=== PATIENT | male | born 1980 | race Caucasian/White ===

== ENCOUNTER 2018-04-10 09:48 | Inpatient (IN) | payer OTHER ==
[2018-04-10] VITALS (12 sets, daily range): BP systolic 113–156; BP diastolic 66–86; PULSE 100–124; RESP 12–22; TEMP 97.6–98.7; O2SAT 92–98
[2018-04-10] MEDS ORDERED: BACL10TA PO (10:35)
[2018-04-10] MEDS ORDERED: EMPA1TAB3 PO (10:35)
[2018-04-10] MEDS ORDERED: ESCI20TA PO (10:35)
[2018-04-10] MEDS ORDERED: METF500T PO (10:35)
[2018-04-10] MEDS ORDERED: MELO15TA20 PO (10:35)
[2018-04-10] MEDS ORDERED: INSU0.2I SQ (10:35)
[2018-04-10] MEDS ORDERED: GABA300C5 PO (10:35)
[2018-04-10] MEDS ORDERED: ROSU1TAB10 PO (10:35)
[2018-04-10] MEDS ORDERED: MULTTAB67 PO (10:35)
[2018-04-10] MEDS ORDERED: MORPHINE SULFATE 4 MG/ML INJ IV PUSH ONE (10:45)
[2018-04-10] MEDS ORDERED: SODIUM CHLOR 0.9% 1000 ML INJ 1,000 ML IV ONE ×3 (10:45→11:45)
--- NOTE | 2018-04-10 10:47 | PD ---
HPI Chief Complaint: Abdominal Pain Time Seen by Provider: 10:34 Travel History International Travel<30 days: No Contact w/Intl Traveler<30days: No Traveled to known affect area: No History of Present Illness HPI 37yo M with PMH of IDDM presents to the ED with c/o abdominal pain, nausea, vomiting for a last few days. Pt has not had bowel movement since 5 days ago. Pain is generalized and cramping. Pt also with midsternal chest pain for a few days that feels like a small child is sitting on his chest. Associated with some sob. Feels chills but no documented fever. Denies any focal weakness or numbness. Pt has not taken his insulin for a few days. PFSH Past Medical History Arthritis: Yes (osteoarthritis ) Diabetes: Yes (METFORMIN, INSULIN) Patient Takes Glucophage: Yes (Metformin 04/07/18 0800) Diminished Hearing: No Medical other: Yes (neuropathy) Tetanus Vaccination: > 5 Years Influenza Vaccination: No Past Surgical History Surgical History: No Previous Surgery Social History Alcohol Use: No Tobacco Use: No Substance Use: No Allergies-Medications (Allergen,Severity, Reaction): Coded Allergies: No Known Drug Allergies (Verified Allergy, Unknown, 04/10/18) Reported Meds & Prescriptions Reported Meds & Active Scripts Active Reported Metformin (Metformin HCl) 500 Mg Tab 500 Mg PO BIDPC Escitalopram (Escitalopram Oxalate) 20 Mg Tab 20 Mg PO DAILY Soliqua 100/33 100-33 Unt-Mcg/ml (Insulin Glargine-Lixisenatide) 100 Unit-33 Mcg /Ml (3 Ml) Inj 30 Unit SQ DAILY Multiple Vitamin 1 Tab 1 Tab PO DAILY Meloxicam 15 Mg Tab 15 Mg PO DAILY Baclofen 10 Mg Tab 10 Mg PO DAILY Gabapentin 300 Mg Cap 300 Mg PO BID Jardiance (Empagliflozin) 25 Mg Tab 25 Mg PO DAILY Rosuvastatin (Rosuvastatin Calcium) 40 Mg Tab 40 Mg PO DAILY Review of Systems Except as stated in HPI: all other systems reviewed are Neg Physical Exam Narrative GENERAL: 37yo M in moderated distress. SKIN: Focused skin assessment warm/dry. HEAD: Atraumatic. Normocephalic. EYES: Pupils equal and round. No scleral icterus. No injection or drainage. ENT: No nasal bleeding or discharge. Mucous membranes pink and moist. NECK: Trachea midline. No JVD. CARDIOVASCULAR: Mildly tachycardic. No murmur appreciated. RESPIRATORY: No accessory muscle use. Clear to auscultation. Breath sounds equal bilaterally. GASTROINTESTINAL: Abdomen soft, +Epigastric ttp. No rebound tenderness or guarding. MUSCULOSKELETAL: No obvious deformities. No clubbing. No cyanosis. No edema. NEUROLOGICAL: Awake and alert. No obvious cranial nerve deficits. Motor grossly within normal limits in all extremities. Sensation intact. Normal speech. PSYCHIATRIC: Appropriate mood and affect; insight and judgment normal. Data Data Last Documented VS Vital Signs Date Time Temp Pulse Resp B/P (MAP) Pulse Ox O2 Delivery O2 Flow Rate FiO2 04/10/18 13:00 16 04/10/18 10:11 97.6 124 143/86 (105) 96 Orders Orders Complete Blood Count With Diff (04/10/18 10:43) Comprehensive Metabolic Panel (04/10/18 10:43) Lipase (04/10/18 10:43) Prothrombin Time / Inr (Pt) (04/10/18 10:43) Act Partial Throm Time (Ptt) (04/10/18 10:43) Urinalysis - C+S If Indicated (04/10/18 10:43) Ct Abd/Pel W Iv Contrast(Rout) (04/10/18 10:43) Electrocardiogram (04/10/18 10:43) Troponin I (04/10/18 10:43) Chest, Single Ap (04/10/18 ) Sodium Chlor 0.9% 1000 Ml Inj (Ns 1000 M (04/10/18 10:45) Morphine Inj (Morphine Inj) (04/10/18 10:45) Blood Culture (04/10/18 10:46) Lactic Acid Sepsis Protocol (04/10/18 10:46) Blood Glucose (04/10/18 10:47) Blood Gas Venous (Vbg) (04/10/18 10:47) Sodium Chlor 0.9% 1000 Ml Inj (Ns 1000 M (04/10/18 11:00) Sodium Chlor 0.9% 1000 Ml Inj (Ns 1000 M (04/10/18 11:45) Beta Hydroxybutyrate (Acetone) (04/10/18 11:25) Insulin Regular (Iv Infusion) (Novolin R (04/10/18 14:00) Potassium Chlor 20 Meq Premix (Kcl 20 Me (04/10/18 13:30) Potassium Chlor 20 Meq Premix (Kcl 20 Me (04/10/18 13:30) Potassium Chlor 20 Meq Premix (Kcl 20 Me (04/10/18 13:30) Potassium Chlor 20 Meq Premix (Kcl 20 Me (04/10/18 13:30) Sodium Chlor 0.9% 1000 Ml Inj (Ns 1000 M (04/10/18 13:23) Dext 5%-Nacl 0.9% 1000 Ml Inj (D5w-Ns 10 (04/10/18 13:23) Iohexol 350 Inj (Omnipaque 350 Inj) (04/10/18 13:35) Labs Laboratory Tests Test 04/10/18 11:25 04/10/18 12:30 04/10/18 12:55 White Blood Count 11.0 TH/MM3 Red Blood Count 5.61 MIL/MM3 Hemoglobin 17.2 GM/DL Hematocrit 49.1 % Mean Corpuscular Volume 87.4 FL Mean Corpuscular Hemoglobin 30.6 PG Mean Corpuscular Hemoglobin Concent 35.0 % Red Cell Distribution Width 14.8 % Platelet Count 279 TH/MM3 Mean Platelet Volume 10.0 FL Neutrophils (%) (Auto) 80.6 % Lymphocytes (%) (Auto) 11.9 % Monocytes (%) (Auto) 6.1 % Eosinophils (%) (Auto) 0.1 % Basophils (%) (Auto) 1.3 % Neutrophils # (Auto) 8.9 TH/MM3 Lymphocytes # (Auto) 1.3 TH/MM3 Monocytes # (Auto) 0.7 TH/MM3 Eosinophils # (Auto) 0.0 TH/MM3 Basophils # (Auto) 0.1 TH/MM3 CBC Comment DIFF FINAL Differential Comment Blood Gas Puncture Site IV Blood Gas Patient Temperature 98.6 Venous Blood pH 7.17 Venous Blood Partial Pressure CO2 32 mmHg Venous Blood Partial Pressure O2 36 mmHg Venous Blood HCO3 11 mmol/L Venous Blood Oxygen Saturation 67 % Venous Blood Oxygen Content 16.2 Vol % Venous Blood Base Excess -16.0 mmol/L Oxygen Delivery Device ROOM AIR Blood Gas Inspired Oxygen 21 % Blood Urea Nitrogen 29 MG/DL Creatinine 1.30 MG/DL Random Glucose 266 MG/DL Total Protein 8.9 GM/DL Albumin 4.0 GM/DL Calcium Level 8.6 MG/DL Alkaline Phosphatase 73 U/L Aspartate Amino Transf (AST/SGOT) 7 U/L Alanine Aminotransferase (ALT/SGPT) 33 U/L Total Bilirubin 0.4 MG/DL Sodium Level 137 MEQ/L Potassium Level 4.3 MEQ/L Chloride Level 109 MEQ/L Carbon Dioxide Level 11.8 MEQ/L Anion Gap 16 MEQ/L Estimat Glomerular Filtration Rate 62 ML/MIN Lactic Acid Level 1.1 mmol/L Troponin I LESS THAN 0.02 NG/ML Lipase 513 U/L B-Hydroxybutyrate 7.04 MMOL/L Urine Collection Type VOIDED Urine Color STRAW Urine Turbidity CLEAR Urine pH 6.0 Urine Specific [place] 1.025 Urine Protein 100 mg/dL Urine Glucose (UA) 1000 OR GREATER mg/dL Urine Ketones 80 OR GREATER mg/dL Urine Occult Blood MOD Urine Nitrite NEG Urine Bilirubin NEG Urine Urobilinogen 0.2 MG/DL Urine Leukocyte Esterase NEG Urine Squamous Epithelial Cells 0-2 /hpf Microscopic Urinalysis Comment CULT NOT INDICATED MDM Medical Decision Making Medical Screen Exam Complete: Yes Emergency Medical Condition: Yes Interpretation(s) EKG: Sinus tachycardia at 118bpm. Normal axis. No ST segment elevation or depression. Differential Diagnosis DKA vs. obstruction vs. colitis vs. ACS vs. pneumonia Narrative Course 37yo IDDM presents to the ED with c/o abdominal pain, vomiting, as well as chest pain for 5 days. Pt appears dehydrated and is tachycardic. Pt has not been taking his insulin for a few days. Impression is DKA. Labs reviewed, VBG showed metabolic acidosis with pH of 7.17 and HCO3 of 11. Labs reviewed, no leukocytosis. Hemoglobin elevated likely from dehydration. K normal at 4.3. Anion gap increased at 16. BUN elevated at 29, consistent with dehydration. Glucose elevated at 266. Lactic acid 1.1. Lipase elevated at 513. Troponin negative. CXR negative. Pt started on DKA protocol with K replacement, insulin drip and D5 water IVF since glucose is only 266. Pt reevaluated at bedside and feels a little better. No longer has chest pain. CT a/p negative for acute process. Discussed with Dr. Perez and accepted to his service. Critical Care Narrative Aggregate critical care time was 50 minutes. Time to perform other separately billable procedures was not included in the critical care time. My time did not include minutes spent treating any other patients simultaneously or on activities that did not directly contribute to the patient's treatment. The services I provided to this patient were to treat and/or prevent clinically significant deterioration that could result in: cardiovascular collapse or . I provided critical care services requiring my management, as noted below: Chart data review, documentation time, medication orders and management, vital sign assessments/reviewing monitor data, ordering and reviewing lab tests, ordering and interpreting/reviewing x-rays and diagnostic studies, care of the patient and discussion of the patient with the admitting physicians. Diagnosis Primary Impression: DKA (diabetic ketoacidoses) Qualified Codes: E10.10 - Type 1 diabetes mellitus with ketoacidosis without coma Admitting Information Admitting Physician Requests: it Norma Su DO April 10, 2018 10:47
--- NOTE | 2018-04-10 11:08 | RADRPT ---
EXAM DATE/TIME: 04/10/2018 10:55 [facility] COMPARISON: No previous studies available for comparison. INDICATIONS : Chest discomfort; vomiting for 2 days. MEDICAL HISTORY : None. SURGICAL HISTORY : None. ENCOUNTER: Initial ACUITY: 2 days PAIN SCORE: 2/10 LOCATION: Bilateral chest FINDINGS: A single view of the chest demonstrates the lungs to be symmetrically aerated without evidence of mas s, infiltrate or effusion. The cardiomediastinal contours are unremarkable. Osseous structures are intact. CONCLUSION: Normal examination. Julia Nelson MD on April 10, 2018 at 11:04 Board Certified Radiologist. This report was verified electronically.
[2018-04-10 11:52] LABS: AUTOMATED NEUTROPHIL # 8.9 TH/MM3 (1.8-7.7); BASOPHIL # 0.1 TH/MM3 (0-0.2); BASOPHIL % 1.3 % (0.0-2.0); EOSINOPHIL % 0.1 % (0.0-4.0); HEMATOCRIT 49.1 % (39.0-51.0); HEMOGLOBIN 17.2 GM/DL (13.0-17.0); LYMPH % 11.9 % (9.0-44.0); LYMPHOCYTE # 1.3 TH/MM3 (1.0-4.8); MEAN CELL VOLUME 87.4 FL (80.0-100.0); MEAN CORPUSCULAR HEMOGLOBIN 30.6 PG (27.0-34.0); MONO % 6.1 % (0.0-8.0); MONOCYTE # 0.7 TH/MM3 (0-0.9); NEUT % 80.6 % (16.0-70.0); PLATELET COUNT 279 TH/MM3 (150-450); RED BLOOD COUNT 5.61 MIL/MM3 (4.50-5.90); RED CELL DISTRIBUTION WIDTH 14.8 % (11.6-17.2)
[2018-04-10 12:57] LABS: CHLORIDE 109 MEQ/L (98-107); SODIUM (NA) 137 MEQ/L (136-145)
[2018-04-10 12:59] LABS: CALCIUM 8.6 MG/DL (8.5-10.1)
[2018-04-10 13:00] LABS: BICARBONATE 11.8 MEQ/L (21.0-32.0); BLOOD UREA NITROGEN 29 MG/DL (7-18); GLUCOSE,RANDOM 266 MG/DL (74-106)
[2018-04-10 13:03] LABS: ALT (GPT) 33 U/L (12-78); AST (GOT) 7 U/L (15-37); GLOMERULAR FILTRATION RATE 62 ML/MIN (>89)
[2018-04-10 13:04] LABS: TOTAL BILIRUBIN ADULT 0.4 MG/DL (0.2-1.0); TOTAL PROTEIN 8.9 GM/DL (6.4-8.2)
[2018-04-10 13:05] LABS: BLOOD, URINE MOD (NEG); GLUCOSE,URINE 1000 OR GREATER mg/dL (NEG); KETONE, URINE 80 OR GREATER mg/dL (NEG); NITRITE,URINE NEG (NEG); URINE LEUKOCYTE ESTERASE NEG (NEG)
[2018-04-10 13:05] LABS: ALKALINE PHOSPHATASE 73 U/L (45-117)
[2018-04-10 13:08] LABS: URINE COLOR STRAW (YELLW/STRAW)
[2018-04-10 13:08] LABS: TROPONIN I LESS THAN 0.02 NG/ML (0.02-0.05)
[2018-04-10] MEDS ORDERED: DEXT 5%-NACL 0.9% 1000 ML INJ 1,000 ML IV SCH (13:23)
[2018-04-10 13:24] LABS: BILIRUBIN, URINE NEG (NEG)
[2018-04-10] MEDS ORDERED: POTASSIUM CHLOR 20 MEQ PREMIX 100 ML IV PRN ×3 (13:30)
[2018-04-10 13:31] LABS: SQUAMOUS EPITHELIAL CELL URINE 0-2 /hpf (0-5)
[2018-04-10] MEDS ORDERED: IOHEXOL 350 MG/ML 10 ML VIAL (for RAD DIAG) IVCONTRAST ONE (13:35)
[2018-04-10] MEDS ORDERED: METFORMIN HOLD POST IV CONTRAST SCH (13:35)
--- NOTE | 2018-04-10 13:49 | RADRPT ---
EXAM DATE/TIME: 04/10/2018 13:28 [facility] COMPARISON: No previous studies available for comparison. INDICATIONS : Generalized weakness and lower abdominal pain with vomiting and no bowel movement. IV CONTRAST: 75 cc Omnipaque 350 (iohexol) IV ORAL CONTRAST: No oral contrast ingested. RADIATION DOSE: 20.01 CTDIvol (mGy) MEDICAL HISTORY : Diabetes. SURGICAL HISTORY : None. ENCOUNTER: Initial ACUITY: 4 - 6 days PAIN SCALE: 4/10 LOCATION: pelvis TECHNIQUE: Volumetric scanning of the abdomen and pelvis was performed. Using automated exposure control and ad justment of the mA and/or kV according to patient size, radiation dose was kept as low as reasonably achievable to obtain optimal diagnostic quality images. DICOM format image data is available electro nically for review and comparison. FINDINGS: The lower lungs are clear. Liver and gallbladder are unremarkable The spleen and pancreas appear normal Venograms unremarkable Symmetrical renal function without mass 1 cm right renal cyst Ch[place]ita the contrast in the colon without inflammatory changes Pelvic contents are unremarkable. Minimal prostate calcifications and seminal vesicle. Review of bone windows reveals mild degenerative changes in the thoracolumbar spine. Pars defect L5- S1 SI joints normal CONCLUSION: Negative for acute process. Bilateral pars defect L5-S1 Minimal radiographic contrast in ascending and transverse colon. Minimal stool descending colon. Hernando Coleman MD FACR on April 10, 2018 at 13:43 Board Certified Radiologist. This report was verified electronically.
[2018-04-10] MEDS: POTASSIUM CHLOR 20 MEQ PREMIX 100 ML IV PRN ×2 (13:50→16:07)
[2018-04-10] MEDS ORDERED: INSULIN REGULAR (IV INFUSION) 100 UNITS in SODIUM CHLORIDE 0.9% INJ 99 ML IV PRN (14:00)
[2018-04-10] MEDS: SODIUM CHLOR 0.9% 1000 ML INJ 1,000 ML IV SCH ×3 (15:07→19:01)
--- NOTE | 2018-04-10 15:56 | MH ---
cc: Theodore Perez MD DATE OF ADMISSION: 04/10/2018 ADMISSION DIAGNOSES: 1. Diabetic ketoacidosis. 2. Elevated lipase level, possible pancreatitis. 3. Hyperlipidemia. 4. Posttraumatic stress disorder. 5. Osteoarthritis. 6. Diabetic neuropathy. HISTORY OF PRESENT ILLNESS: This is a 37-year-old white male who started with vomiting and nausea on 04/08/2018. He states he has vomited up to 8-10 times a day since then, he had some slight abdominal discomfort and just generalized aching all over. He had no diarrhea. No shortness of breath. Had some cramping in his abdomen. He has not had a bowel movement since about 5 days ago. No diarrhea, no rectal bleeding, no hematemesis. He has been belching at times, also. He has not been taking his diabetic medication in the last couple days because of the vomiting and not eating. He came to the emergency room today where he was shown to be in diabetic ketoacidosis. He has been started on IV fluids and insulin drip and protocol for DKA already by the ER physician, Dr. Guzman. He has not had any vomiting since earlier this morning. His abdominal pain is better. He did have some slight elevation of his lipase in the low 500s of questionable significance. He has had no fever or chills. No shortness of breath or cough. PAST MEDICAL HISTORY: He has had diabetes mellitus since 2013. He sees Dr. 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 He has hyperlipidemia and is on a statin drug. He has diabetic neuropathy. He uses gabapentin for this. He has posttraumatic stress disorder and is on escitalopram. He uses meloxicam for arthritis in his back and shoulders. He denies any heart disease, hypertension, liver or kidney disease. No peptic ulcer disease, colon disease. No thyroid disease. No stroke or seizure. PAST SURGICAL HISTORY: None. ALLERGIES: NONE. MEDICATIONS: He is on metformin 500 mg twice a day, Jardiance 25 mg a day. He is on Soliqua 100/33 units mcg/mL and this is a combination of insulin glargine - Lixisenatide 100 units - 33 mcg/mL. He takes 30 units subQ before dinner. He is on gabapentin 300 mg twice a day, baclofen 10 mg daily, meloxicam 15 mg daily, multivitamin 1 a day, rosuvastatin 40 mg a day. FAMILY HISTORY: His mother is living at 66, has had some sort of questionable autoimmune process, which she gets hives. She has a father living at 65, in good health. SOCIAL HISTORY: . Never smoked. Does not use alcohol. 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 REVIEW OF SYSTEMS: GENERAL: No fever or chills. HEENT: No runny nose, sore throat. No visual symptoms. CARDIOVASCULAR: No typical angina or chest pain. PULMONARY: No cough, hemoptysis, wheezing. GASTROINTESTINAL: He has had as mentioned the kind of upper epigastric type discomfort, at times crampy and more severe. Has vomiting, constipation as mentioned. GENITOURINARY: Without complaints other than he has been urinating frequently. No dysuria or hematuria. EXTREMITIES: Without swelling. NEUROLOGIC: He has had just slight headache and slight dizziness. No weakness. He does get numbness and tingling in his feet. PHYSICAL EXAMINATION: GENERAL: Obese white male in no acute distress. VITAL SIGNS: Done earlier today are 97.6, pulse 124, respiration rate 16, BP 143/86, pulse oximetry 96%. HEENT: TMs clear. Pupils equal. Sclerae nonicteric. Nose without lesion. Mouth without inflammation or lesion. NECK: Without bruit. No JVD. HEART: Regular rate and rhythm. No murmurs. LUNGS: Clear. ABDOMEN: Soft. He has some slight tenderness in the epigastric region. No rebound or guarding. EXTREMITIES: Pulses palpated both feet. SKIN: No rashes. NEUROLOGIC: Oriented x 3. Motor strength symmetrical. Sensation appears intact. LABORATORY DATA: White count was 11.0, hemoglobin 17.2, platelets were normal. Neutrophils 80.6, lymphocytes 11.9. His lipase was mildly elevated at 513. His BMP done at 12:30 showed a sodium of 137, potassium 4.3, chloride 109, CO2 was 11.8, anion gap was 16, BUN 29, creatinine 1.30, GFR 62, glucose was 266. Lactic acid 1.1. Beta hydroxybutyrate was high at 7.04. Urinalysis showed 1000 or greater glucose and ketones present. His pH was initially 7.17, CO2 is 32. A venous blood gas O2 was 36. Chest x-ray was negative. CT scan of the abdomen showed no obvious acute process. ASSESSMENT: As noted. PLAN: The patient has been admitted and going to go to the fourth floor with the intensive care. He is going to continue on the diabetic ketoacidosis protocol. We will have him use SCDs and DARIEL hose for now. We will hold his oral medicines at this point since he has been vomiting and had the abdominal pain. We will recheck a lipase in the morning. MD RAMONA Velazquez/TL , 03:08 PM , 03:55 PM
[2018-04-10 16:01] LABS: PROTHROMBIN TIME - PATIENT 10.2 SEC (9.8-11.6)
--- NOTE | 2018-04-10 16:55 | EKG ---
Date Performed: 04/10/2018 Time Performed: 11:01:59 PTAGE: 37 years EKG: SINUS TACHYCARDIA POSSIBLE LEFT ATRIAL ENLARGEMENT ABNORMAL RHYTHM ECG NO PREVIOUS TRACING DOCTOR: Danay Gay Interpretating Date/Time 04/10/2018 16:54:03
[2018-04-10] MEDS ORDERED: CHLORHEXIDINE GLUCONATE 2 % 1 PACK (2 CLOTHS)(extra cloths) TOPICAL PRN (17:00)
[2018-04-10 18:03] LABS: CALCIUM 7.7 MG/DL (8.5-10.1); CREATININE 1.1 MG/DL (0.60-1.30)
[2018-04-10] MEDS ORDERED: DEXTROSE 50% IN WATER 50 ML VIAL(D50) IV PUSH PRN (19:00)
[2018-04-10] MEDS ORDERED: GLUCAGON 1 MG/ML VIAL OTHER PRN (19:00)
[2018-04-10] MEDS: ONDANSETRON HCL 4 MG/2 ML VIAL IV PUSH PRN (19:01)
[2018-04-10] MEDS: MEDIUM DOSE INSULIN NOVOLIN REGULAR SUPPLEMENTAL SCALE SQ SCH (20:25)
[2018-04-10] MEDS ORDERED: PROMETHAZINE HCL 25 MG TAB PO PRN (23:45)
[2018-04-10] MEDS ORDERED: PANTOPRAZOLE SOD 40 MG DELAYED RELEASE TAB PO ONE (23:45)
[2018-04-11] VITALS (27 sets, daily range): BP systolic 122–161; BP diastolic 65–83; PULSE 84–112; RESP 14–22; TEMP 98–98.9; O2SAT 93–97
[2018-04-11] MEDS: ONDANSETRON HCL 4 MG/2 ML VIAL IV PUSH PRN ×2 (00:57→16:10)
[2018-04-11 01:33] LABS: CALCIUM 7.5 MG/DL (8.5-10.1)
[2018-04-11 01:34] LABS: BICARBONATE 14.8 MEQ/L (21.0-32.0)
[2018-04-11 01:37] LABS: CREATININE 0.94 MG/DL (0.60-1.30)
[2018-04-11] MEDS: SODIUM CHLOR 0.9% 1000 ML INJ 1,000 ML IV SCH ×4 (02:00→21:55)
[2018-04-11] MEDS: CHLORHEXIDINE GLUCONATE 2 % 1 PACK (2 CLOTHS)(taper/protocol) TOPICAL SCH (04:00)
[2018-04-11] MEDS: MEDIUM DOSE INSULIN NOVOLIN REGULAR SUPPLEMENTAL SCALE SQ SCH ×7 (04:45→23:45)
[2018-04-11 05:37] LABS: AUTOMATED NEUTROPHIL # 9.3 TH/MM3 (1.8-7.7); BASOPHIL % 0.2 % (0.0-2.0); EOSINOPHIL % 0.1 % (0.0-4.0); HEMATOCRIT 41.8 % (39.0-51.0); LYMPH % 14.5 % (9.0-44.0); LYMPHOCYTE # 1.7 TH/MM3 (1.0-4.8); MEAN CORPUSCULAR HEMOGLOBIN 29.5 PG (27.0-34.0); MEAN CORPUSCULAR HGB CONC 33.6 % (32.0-36.0); MEAN PLATELET VOLUME 9.4 FL (7.0-11.0); NEUT % 77.2 % (16.0-70.0); PLATELET COUNT 213 TH/MM3 (150-450); RED BLOOD COUNT 4.76 MIL/MM3 (4.50-5.90); RED CELL DISTRIBUTION WIDTH 14.2 % (11.6-17.2)
--- NOTE | 2018-04-11 07:00 | HHI.PR ---
Subjective Remarks No fevers or chills. Still having nausea. Had dry heaves episode approximately 2 hours ago with slight phlegm production. Objective Vitals Vital Signs Date Time Temp Pulse Resp B/P (MAP) Pulse Ox O2 Delivery O2 Flow Rate FiO2 04/11/18 06:13 98 04/11/18 05:37 94 04/11/18 04:03 103 04/11/18 03:02 100 04/11/18 03:00 96 17 126/72 (90) 95 04/11/18 02:11 101 04/11/18 02:00 98 18 140/75 (96) 95 04/11/18 01:00 102 04/11/18 01:00 104 15 153/72 (99) 97 04/11/18 00:05 104 04/11/18 00:01 98.9 104 22 161/82 (108) 96 04/10/18 23:00 100 04/10/18 23:00 112 12 113/81 (92) 96 04/10/18 22:00 106 19 135/66 (89) 92 04/10/18 21:41 106 04/10/18 21:00 100 18 145/77 (99) 94 04/10/18 20:03 108 04/10/18 20:00 98.7 114 15 156/73 (100) 98 04/10/18 18:00 113 04/10/18 17:00 111 04/10/18 16:05 116 18 127/70 (89) 96 04/10/18 15:58 04/10/18 15:56 98.5 116 22 134/69 (90) 04/10/18 15:21 114 17 126/67 (86) 97 Room Air 04/10/18 13:00 16 04/10/18 10:11 97.6 124 16 143/86 (105) 96 GENERAL: Awake and alert, cooperative. No acute distress. SKIN: Warm and dry. HEAD: Normocephalic. EYES: No scleral icterus. No injection or drainage. NECK: Supple, trachea midline. No JVD or lymphadenopathy. CARDIOVASCULAR: Regular rate and rhythm without murmurs, gallops, or rubs. RESPIRATORY: Breath sounds equal bilaterally. No accessory muscle use. GASTROINTESTINAL: Abdomen soft, non-tender, mild tenderness to palpation in epigastrium. Bowel sounds slightly diminished. No guarding or rebound. MUSCULOSKELETAL: No cyanosis, or edema. Moves all extremities well. BACK: No CVA tenderness. Result Diagram: 04/11/18 0418 04/11/18 0100 Urinary Catheter: No Vascular Central Line Catheter: No A/P Problem List: (1) DKA (diabetic ketoacidoses) ICD Codes: E13.10 - Other specified diabetes mellitus with ketoacidosis without coma Status: Acute Plan: Patient appears to have type 2 diabetes which is now insulin requiring. Additionally he is on guardians which increases his risk of DKA. The underlying gastritis with subsequent nausea/vomiting in addition to his ketogenic diet likely related to current symptomatology Anion gap is closed. Bicarb improved somewhat but still a bit low. We will continue IV fluids. Provide basal insulin as well as sliding scale coverage. Follow labs. (2) Diabetic neuropathy ICD Codes: E11.40 - Type 2 diabetes mellitus with diabetic neuropathy, unspecified Status: Chronic Plan: Continue medication. (3) Gastritis ICD Codes: K29.70 - Gastritis, unspecified, without bleeding Status: Acute Plan: Continue Protonix and famotidine. Will use Compazine to see if this helps with his nausea bit better. If he continues to have significant nausea, may have GI see the patient. (4) Hyperlipidemia ICD Codes: E78.5 - Hyperlipidemia, unspecified Status: Chronic Plan: Continue home meds. Problem Qualifiers (1) DKA (diabetic ketoacidoses): Qualified Codes: E11.10 - Type 2 diabetes mellitus with ketoacidosis without coma (2) Diabetic neuropathy: Samir Guerin MD PhD April 11, 2018 07:00
[2018-04-11 07:25] LABS: BICARBONATE 16.3 MEQ/L (21.0-32.0); CALCIUM 7.7 MG/DL (8.5-10.1)
[2018-04-11 07:28] LABS: CREATININE 0.89 MG/DL (0.60-1.30)
[2018-04-11] MEDS: PROCHLORPERAZINE INJ 10 MG/2 ML VIAL IV PUSH PRN ×2 (08:14→21:58)
[2018-04-11] MEDS: INSULIN DETEMIR 100 UNITS/ML VIAL SQ SCH ×2 (08:45→21:22)
[2018-04-11] MEDS: PANTOPRAZOLE SOD 40 MG DELAYED RELEASE TAB PO SCH (08:46)
[2018-04-11] MEDS ORDERED: FAMOTIDINE 20 MG TAB PO SCH (09:00)
[2018-04-11] MEDS ORDERED: INFLUENZA VIRUS VACCINE (QUADRIVALENT) 0.5 ML SYR IM ONE (10:00)
[2018-04-11] MEDS ORDERED: PNEUMOCOCCAL POLYVALENT INJ 25 MCG/0.5 ML SYR IM ONE (10:00)
[2018-04-11] MEDS ORDERED: METOCLOPRAMIDE HCL 10 MG/2 ML VIAL IV PUSH ONE (23:15)
[2018-04-12] VITALS (15 sets, daily range): BP systolic 112–161; BP diastolic 56–88; PULSE 80–100; RESP 12–25; TEMP 97.7–98.7; O2SAT 94–99
[2018-04-12] MEDS: MEDIUM DOSE INSULIN NOVOLIN REGULAR SUPPLEMENTAL SCALE SQ SCH ×3 (04:00→12:15)
[2018-04-12] MEDS: CHLORHEXIDINE GLUCONATE 2 % 1 PACK (2 CLOTHS)(taper/protocol) TOPICAL SCH (04:00)
[2018-04-12] MEDS: SODIUM CHLOR 0.9% 1000 ML INJ 1,000 ML IV SCH ×3 (04:18→12:48)
[2018-04-12 05:27] LABS: BICARBONATE 19.5 MEQ/L (21.0-32.0); CALCIUM 7.8 MG/DL (8.5-10.1)
[2018-04-12 05:31] LABS: CREATININE 0.74 MG/DL (0.60-1.30)
[2018-04-12] MEDS ORDERED: POTASSIUM CHLORIDE 10 MEQ CONTROLLED RELEASE TAB PO ONE ×2 (06:15→20:00)
--- NOTE | 2018-04-12 06:56 | HHI.PR ---
Subjective Remarks Patient has been tolerating sips fluids. Still having nausea. No vomiting. Still no bowel movement but positive flatus. Has not been taking in much solid food since Wednesday. Last episode of vomiting was Wednesday per his report Objective Vitals Vital Signs Date Time Temp Pulse Resp B/P (MAP) Pulse Ox O2 Delivery O2 Flow Rate FiO2 04/12/18 06:06 100 04/12/18 06:00 82 25 145/72 (96) 04/12/18 05:00 90 18 122/67 (85) 04/12/18 04:46 87 04/12/18 04:00 98.4 90 12 140/72 (94) 94 04/12/18 03:00 88 18 131/71 (91) 04/12/18 02:00 99 04/12/18 02:00 90 19 122/56 (78) 04/12/18 01:00 94 12 156/85 (108) 04/12/18 00:21 94 04/12/18 00:16 90 16 153/70 (97) 04/12/18 00:16 98.7 90 16 153/70 (97) 95 04/11/18 23:00 98 19 137/70 (92) 04/11/18 22:39 96 04/11/18 22:04 104 18 122/71 (88) 96 04/11/18 21:23 94 14 157/80 (105) 95 04/11/18 20:00 98.9 96 18 139/70 (93) 96 04/11/18 20:00 92 04/11/18 19:00 94 18 124/65 (84) 93 04/11/18 18:00 100 20 152/81 (104) 97 04/11/18 18:00 100 04/11/18 16:00 98.0 98 14 138/74 (95) 96 04/11/18 16:00 98 04/11/18 15:00 84 16 131/77 (95) 95 04/11/18 15:00 84 04/11/18 14:00 86 16 125/68 (87) 95 04/11/18 14:00 86 04/11/18 13:00 88 17 135/70 (91) 95 04/11/18 12:00 92 04/11/18 12:00 98.7 92 16 138/65 (89) 95 04/11/18 11:00 92 18 140/67 (91) 94 04/11/18 10:00 92 04/11/18 10:00 92 17 140/73 (95) 94 04/11/18 09:00 112 04/11/18 09:00 112 21 151/77 (101) 96 04/11/18 08:00 92 04/11/18 08:00 98.1 92 17 128/74 (92) 95 04/11/18 07:00 98 04/11/18 07:00 98 14 161/83 (109) 95 GENERAL: Obese, alert and oriented. No acute distress. SKIN: Warm and dry. HEAD: Normocephalic. EYES: No scleral icterus. No injection or drainage. Extraocular motion intact. NECK: Supple, trachea midline. No JVD or lymphadenopathy. CARDIOVASCULAR: Regular rate and rhythm without murmurs, gallops, or rubs. RESPIRATORY: Breath sounds equal bilaterally. No accessory muscle use. GASTROINTESTINAL: Abdomen soft, nondistended. Mild tenderness in epigastrium. No guarding or rebound. Bowel sounds present. MUSCULOSKELETAL: No cyanosis, or edema. Moves all extremities well. BACK: No CVA tenderness. Result Diagram: 04/11/18 0418 04/12/18 0420 Urinary Catheter: No Vascular Central Line Catheter: No A/P Problem List: (1) DKA (diabetic ketoacidoses) ICD Codes: E13.10 - Other specified diabetes mellitus with ketoacidosis without coma Status: Acute Plan: Patient appears to have type 2 diabetes which is now insulin requiring. Additionally he was on Jardiance which increases his risk of DKA. The underlying gastritis with subsequent nausea/vomiting in addition to his ketogenic diet likely related to current symptomatology. Anion gap is closed and bicarb has improved significantly. We will continue IV fluids. Provide basal insulin as well as sliding scale coverage. Follow labs. We will try to advance diet today. Use Reglan. (2) Diabetic neuropathy ICD Codes: E11.40 - Type 2 diabetes mellitus with diabetic neuropathy, unspecified Status: Chronic Plan: Continue medication. (3) Gastritis ICD Codes: K29.70 - Gastritis, unspecified, without bleeding Status: Acute Plan: Continue Protonix and famotidine. Will use Compazine as this seems to help his nausea a bit better.. If he continues to have significant nausea, may have GI see the patient. We will try to advance diet today. Use Reglan as noted. May have some underlying diabetic gastroparesis. (4) Hyperlipidemia ICD Codes: E78.5 - Hyperlipidemia, unspecified Status: Chronic Plan: Continue home meds. Discharge Planning Hopefully discharge home the next 1-2 days depending on his GI symptoms and ability to tolerate oral intake. Problem Qualifiers (1) DKA (diabetic ketoacidoses): Qualified Codes: E11.10 - Type 2 diabetes mellitus with ketoacidosis without coma (2) Diabetic neuropathy: Samir Guerin MD PhD April 12, 2018 06:55
[2018-04-12] MEDS: METOCLOPRAMIDE HCL 10 MG/2 ML VIAL IV PUSH SCH ×4 (08:05→21:20)
[2018-04-12] MEDS: PANTOPRAZOLE SOD 40 MG DELAYED RELEASE TAB PO SCH (09:18)
[2018-04-12] MEDS: INSULIN DETEMIR 100 UNITS/ML VIAL SQ SCH ×2 (09:18→21:18)
[2018-04-12 15:58] LABS: CREATININE 0.59 MG/DL (0.60-1.30)
[2018-04-12] MEDS: INSULIN ASPART SUPPLEMENTAL SCALE SQ SCH ×2 (16:17→21:00)
[2018-04-13] VITALS: BP 165/92; PULSE 81; RESP 20; TEMP 96.4; O2SAT 97
[2018-04-13] MEDS: SODIUM CHLOR 0.9% 1000 ML INJ 1,000 ML IV SCH ×2 (00:40→07:20)
[2018-04-13 04:00] VITALS: BP 139/86; PULSE 83; RESP 20; TEMP 97.4; O2SAT 93
[2018-04-13] MEDS: CHLORHEXIDINE GLUCONATE 2 % 1 PACK (2 CLOTHS)(taper/protocol) TOPICAL SCH (04:00)
[2018-04-13 06:23] LABS: ALKALINE PHOSPHATASE 50 U/L (45-117); ALT (GPT) 22 U/L (12-78); AST (GOT) 11 U/L (15-37); BICARBONATE 23.7 MEQ/L (21.0-32.0); BLOOD UREA NITROGEN 8 MG/DL (7-18); CALCIUM 7.8 MG/DL (8.5-10.1); CHLORIDE 106 MEQ/L (98-107); CREATININE 0.53 MG/DL (0.60-1.30); GLOMERULAR FILTRATION RATE 174 ML/MIN (>89); GLUCOSE,RANDOM 110 MG/DL (74-106); SODIUM (NA) 141 MEQ/L (136-145); TOTAL BILIRUBIN ADULT 0.6 MG/DL (0.2-1.0); TOTAL PROTEIN 6.4 GM/DL (6.4-8.2)
--- NOTE | 2018-04-13 07:49 | HHI.PR ---
Subjective Remarks Feeling much better. Tolerating oral intake. Abdominal pain and nausea nearly completely resolved. Positive flatus, still no bowel movement. He does note more flatus over the last 12 hours. Objective Vitals Vital Signs Date Time Temp Pulse Resp B/P (MAP) Pulse Ox O2 Delivery O2 Flow Rate FiO2 04/13/18 04:00 97.4 83 20 139/86 (103) 93 04/13/18 00:00 96.4 81 20 165/92 (116) 97 04/12/18 20:00 98.5 81 20 161/88 (112) 96 04/12/18 16:00 97.7 82 19 112/60 (77) 97 04/12/18 12:00 83 04/12/18 12:00 98.3 83 24 136/75 (95) 99 04/12/18 10:00 99 04/12/18 08:00 82 04/12/18 08:00 80 18 146/75 (98) GENERAL: Obese, alert and oriented. No acute distress. Appears more comfortable today. SKIN: Warm and dry. HEAD: Normocephalic. EYES: No scleral icterus. No injection or drainage. Extraocular motion intact. NECK: Supple, trachea midline. No JVD or lymphadenopathy. CARDIOVASCULAR: Regular rate and rhythm without murmurs, gallops, or rubs. RESPIRATORY: Breath sounds equal bilaterally. No accessory muscle use. GASTROINTESTINAL: Abdomen soft, nondistended. No tenderness palpation on today' s exam. No guarding or rebound. Bowel sounds present and improved. MUSCULOSKELETAL: No cyanosis, or edema. Moves all extremities well. BACK: No CVA tenderness. Result Diagram: 04/11/18 0418 04/13/18 0510 Urinary Catheter: No Vascular Central Line Catheter: No A/P Problem List: (1) DKA (diabetic ketoacidoses) ICD Codes: E13.10 - Other specified diabetes mellitus with ketoacidosis without coma Status: Acute Plan: Patient appears to have type 2 diabetes which is now insulin requiring. Additionally he was on Jardiance which increases his risk of DKA. The underlying gastritis with subsequent nausea/vomiting in addition to his ketogenic diet likely related to current symptomatology. Anion gap is closed and bicarb has improved significantly. Continue current insulin regimen. IV fluids have been stopped as he is tolerating oral intake well. Continue Reglan. (2) Diabetic neuropathy ICD Codes: E11.40 - Type 2 diabetes mellitus with diabetic neuropathy, unspecified Status: Chronic Plan: Continue medication. (3) Gastritis ICD Codes: K29.70 - Gastritis, unspecified, without bleeding Status: Acute Plan: Continue Protonix and famotidine. Will use Compazine as this seems to help his nausea a bit better. May have some underlying diabetic gastroparesis. Overall much improved today. Continue Reglan. (4) Hyperlipidemia ICD Codes: E78.5 - Hyperlipidemia, unspecified Status: Chronic Plan: Continue home meds. Discharge Planning Hopefully discharge home later today or tomorrow depending on his capacity to continue to tolerate oral intake. Problem Qualifiers (1) DKA (diabetic ketoacidoses): Qualified Codes: E11.10 - Type 2 diabetes mellitus with ketoacidosis without coma (2) Diabetic neuropathy: Samir Guerin MD PhD April 13, 2018 07:49
[2018-04-13] MEDS ORDERED: PROM25TA10 PO (07:51)
[2018-04-13] MEDS ORDERED: PANT40TA3 PO (07:51)
[2018-04-13 08:00] VITALS: BP 165/97; PULSE 77; RESP 18; TEMP 97.4; O2SAT 97
[2018-04-13] MEDS: INSULIN ASPART SUPPLEMENTAL SCALE SQ SCH ×2 (08:00→11:57)
--- NOTE | 2018-04-13 08:01 | HHI.DS ---
Discharge Summary Admission Date April 10, 2018 at 14:55 Discharge Date: April 13, 2018 Admitting Diagnosis DKA (1) DKA (diabetic ketoacidoses) Diagnosis: Principal ICD Codes: E13.10 - Other specified diabetes mellitus with ketoacidosis without coma Status: Acute (2) Diabetic neuropathy Diagnosis: Secondary ICD Codes: E11.40 - Type 2 diabetes mellitus with diabetic neuropathy, unspecified Status: Chronic (3) Gastritis Diagnosis: Secondary ICD Codes: K29.70 - Gastritis, unspecified, without bleeding Status: Acute (4) Hyperlipidemia Diagnosis: Secondary ICD Codes: E78.5 - Hyperlipidemia, unspecified Status: Chronic Brief History This is a 37-year-old white male who started with vomiting and nausea on 04/08/2018. He states he has vomited up to 8-10 times a day since then, he had some slight abdominal discomfort and just generalized aching all over. He had no diarrhea. No shortness of breath. Had some cramping in his abdomen. He has not had a bowel movement since about 5 days ago. No diarrhea, no rectal bleeding, no hematemesis. He has been belching at times, also. He has not been taking his diabetic medication in the last couple days because of the vomiting and not eating. He came to the emergency room today where he was shown to be in diabetic ketoacidosis. He has been started on IV fluids and insulin drip and protocol for DKA already by the ER physician, Dr. Guzman. He has not had any vomiting since earlier this morning. His abdominal pain is better. He did have some slight elevation of his lipase in the low 500s of questionable significance. He has had no fever or chills. No shortness of breath or cough. CBC/BMP: 04/11/18 0418 04/13/18 0510 Significant Findings Laboratory Tests Test 04/10/18 11:25 04/10/18 12:30 04/10/18 12:55 04/10/18 16:39 Hemoglobin 17.2 GM/DL (13.0-17.0) Neutrophils (%) (Auto) 80.6 % (16.0-70.0) Neutrophils # (Auto) 8.9 TH/MM3 (1.8-7.7) Venous Blood pH 7.17 (7.360-7.400) Venous Blood Partial Pressure CO2 32 mmHg (44-48) Venous Blood HCO3 11 mmol/L (22-26) Venous Blood Oxygen Saturation 67 % (70-76) Venous Blood Base Excess -16.0 mmol/L (-2-2) Blood Urea Nitrogen 29 MG/DL (7-18) 22 MG/DL (7-18) Random Glucose 266 MG/DL (74-106) 153 MG/DL (74-106) Total Protein 8.9 GM/DL (6.4-8.2) Aspartate Amino Transf (AST/SGOT) 7 U/L (15-37) Chloride Level 109 MEQ/L (98-107) 116 MEQ/L (98-107) Carbon Dioxide Level 11.8 MEQ/L (21.0-32.0) 14.0 MEQ/L (21.0-32.0) Anion Gap 16 MEQ/L (5-15) Estimat Glomerular Filtration Rate 62 ML/MIN (>89) 75 ML/MIN (>89) Troponin I LESS THAN 0.02 NG/ML Lipase 513 U/L (73-393) B-Hydroxybutyrate 7.04 MMOL/L (0.00-0.39) Urine Protein 100 mg/dL (NEG-TRACE) Urine Glucose (UA) 1000 OR GREATER mg/dL Urine Ketones 80 OR GREATER mg/dL (NEG) Urine Occult Blood MOD (NEG) Calcium Level 7.7 MG/DL (8.5-10.1) Test 04/10/18 17:00 18 01:00 04/11/18 04:18 04/12/18 04:20 Blood Urea Nitrogen 19 MG/DL (7-18) 19 MG/DL (7-18) Random Glucose 185 MG/DL (74-106) 162 MG/DL (74-106) 127 MG/DL (74-106) Calcium Level 7.5 MG/DL (8.5-10.1) 7.7 MG/DL (8.5-10.1) 7.8 MG/DL (8.5-10.1) Chloride Level 114 MEQ/L (98-107) 114 MEQ/L (98-107) 114 MEQ/L (98-107) Carbon Dioxide Level 14.8 MEQ/L (21.0-32.0) 16.3 MEQ/L (21.0-32.0) 19.5 MEQ/L (21.0-32.0) B-Hydroxybutyrate 4.68 MMOL/L (0.00-0.39) 5.27 MMOL/L (0.00-0.39) 3.39 MMOL/L (0.00-0.39) White Blood Count 12.0 TH/MM3 (4.0-11.0) Neutrophils (%) (Auto) 77.2 % (16.0-70.0) Neutrophils # (Auto) 9.3 TH/MM3 (1.8-7.7) Monocytes # (Auto) 1.0 TH/MM3 (0-0.9) Potassium Level 3.2 MEQ/L (3.5-5.1) Test 04/12/18 15:20 04/13/18 05:10 Potassium Level 3.1 MEQ/L (3.5-5.1) 3.2 MEQ/L (3.5-5.1) Creatinine 0.59 MG/DL (0.60-1.30) 0.53 MG/DL (0.60-1.30) Random Glucose 110 MG/DL (74-106) Albumin 3.0 GM/DL (3.4-5.0) Calcium Level 7.8 MG/DL (8.5-10.1) Aspartate Amino Transf (AST/SGOT) 11 U/L (15-37) Imaging Last 72 hours Impressions Abdomen/Pelvis CT 04/10/18 1043 Signed Impressions: Service Date/Time: Tuesday, April 10, 2018 13:28 - CONCLUSION: Negative for acute process. Bilateral pars defect L5-S1 Minimal radiographic contrast in ascending and transverse colon. Minimal stool descending colon. Hernando Coleman MD FACR Hospital Course Patient admitted for DKA exacerbation. It is noted he had been vomiting several days prior to admission and was additionally on ketogenic diet as well as taking Jardiance. He was started on DKA protocol with IV insulin and fluid resuscitation. He slowly improved with noted anion gap closure and bicarbonate improvement. Potassium supplementation was used as well. He continued to have some nausea but had no more vomiting after the first hospital day. No diarrhea. No fevers. Treatment was continued and he had good improvement. On the day of discharge he was tolerating oral intake quite well. He may have had some degree of diabetic gastroparesis as well as to be has been somewhat constipated. Reglan seemed to help his symptomatology. He will hold off on Jardiance at this point. He will resume his home medications as he says his sugars were doing quite well before he got sick on the outpatient regimen. He will follow up with his endocrine doctor in 1-2 weeks and with me within a week. Pt Condition on Discharge: Stable Discharge Disposition: Discharge Home Discharge Instructions DIET: Follow Instructions for: Diabetic Diet Speech Therapy-Diet Recommends: Regular Activities you can perform: Regular-No Restrictions Follow up Referrals: Endocrinology PCP Follow-up New Orders: BASIC METABOLIC PROF - 1 Week New Medications: Metoclopramide (Metoclopramide) 10 Mg Tab 10 MG PO TIDAC for constipation, #12 TAB 0 Refills Pantoprazole (Pantoprazole) 40 Mg Tab 40 MG PO DAILY for gerd, #31 TAB Promethazine (Phenergan) 25 Mg Tablet 25 MG PO Q6H PRN for nausea, #12 TAB Continued Medications: Baclofen (Baclofen) 10 Mg Tab 10 MG PO DAILY for Muscle Spasm, TAB 0 Refills Escitalopram (Escitalopram) 20 Mg Tab 20 MG PO DAILY, #30 TAB 0 Refills Gabapentin (Gabapentin) 300 Mg Cap 300 MG PO BID, #60 CAP 0 Refills Insulin Glargine-Lixisenatide (Soliqua 100/33 100-33 Unt-Mcg/ml) 100 Unit-33 Mcg /Ml (3 Ml) Inj 30 UNIT SQ DAILY Meloxicam (Meloxicam) 15 Mg Tab 15 MG PO DAILY for Arthritis Pain, #30 TAB 0 Refills Metformin (Metformin) 500 Mg Tab 500 MG PO BIDPC for Blood Sugar Management, #60 TAB 0 Refills Multiple Vitamin (Multiple Vitamin) 1 Tab 1 TAB PO DAILY for Nutritional Supplement, TAB 0 Refills Rosuvastatin (Rosuvastatin) 40 Mg Tab 40 MG PO DAILY for Cholesterol Management, #30 TAB 0 Refills Discontinued Medications: Empagliflozin (Jardiance) 25 Mg Tab 25 MG PO DAILY for Blood Sugar Management, #30 TAB 0 Refills Samir Guerin MD PhD April 13, 2018 08:01
[2018-04-13] MEDS ORDERED: POTASSIUM CHLORIDE 10 MEQ CONTROLLED RELEASE TAB PO ONE (08:15)
[2018-04-13] MEDS: PANTOPRAZOLE SOD 40 MG DELAYED RELEASE TAB PO SCH (08:34)
[2018-04-13] MEDS: INSULIN DETEMIR 100 UNITS/ML VIAL SQ SCH (08:36)
[2018-04-13 12:00] VITALS: BP 156/90; PULSE 74; RESP 18; TEMP 97; O2SAT 98
[2018-04-13] MEDS ORDERED: METO10TA PO (12:13)
--- NOTE | 2018-04-13 12:21 | HHI.PR ---
Addendum to Inpatient Note Addendum Reason: Additional Documentation Additional Information Spoke with pt. He is feeling much better and tolerating DM diet well. He has had 1 BM today. Desires DC home. Will d/c home with close outpt f/u. Samir Guerin MD PhD April 13, 2018 12:21
[2018-04-13 16:00] LABS: HEMOGLOBIN A1C 8.8 % (4.3-6.0)
== END 2018-04-13 13:27 | disposition home or self-care (01) | DRG 639 ==
LOC: PHED 09:48 → INTOOBSV 14:13 → PHEDA 14:13 → OBSVTOIN 14:55 → PHICU 15:51 → PH3A 04-12 12:23
PROVIDERS: ADMIT Family Medicine; ATTEND Family Medicine
DX: E11.10 Type 2 diabetes mellitus with ketoacidosis without coma (principal); E78.5 Hyperlipidemia, unspecified; E86.0 Dehydration; R00.0 Tachycardia, unspecified; F43.10 Post-traumatic stress disorder, unspecified; M19.012 Primary osteoarthritis, left shoulder; M19.011 Primary osteoarthritis, right shoulder; K29.70 Gastritis, unspecified, without bleeding; M46.90 Unspecified inflammatory spondylopathy, site unspecified; E11.40 Type 2 diabetes mellitus with diabetic neuropathy, unspecified; Z79.4 Long term (current) use of insulin; Z23 Encounter for immunization
CPT/HCPCS: 71045; 74177; 80048; 80053; 81001; 82010; 82565; 82805; 82948; 83036; 83605; 83690; 84132; 84484; 85025; 85610; 85730; 87040; 87641; 90471; 90686; 93005; 96361; 96365; 96375; G0008; J0780; J1815; J1817; J2270; J2405; J2765; J3480; J7030; J7042; Q0169; Q2038; Q9967